=== PATIENT | female | born 1950 | race Caucasian/White ===

== ENCOUNTER 2019-07-11 12:23 | Outpatient (CLI) | payer MEDICARE, SELFPAY ==
--- NOTE | ~2019-07-11 | CT_ITS ---
EXAMINATION: CT chest wo con DATE: 07/11/2019 12:52 INDICATION: Pulmonary nodules TECHNIQUE: Computed tomography (CT) of the chest was performed without intravenous contrast. The dose -length product (DLP) was 163.47 mGy-cm. 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 COMPARISON: 11/08/2018 FINDINGS: The previously described pulmonary nodules persist but have decreased in size. For instance a 6 mm nodule of the right upper lobe measures 5 mm and is less dense than on the comparison examina tion. No new pulmonary nodules are identified. There is no pleural effusion or pneumothorax. The lung s are free of focal airspace opacities. No pathologically enlarged thoracic lymph nodes are identifie d. The heart size is normal. There is calcified atherosclerosis. There is subendocardial fat depositi on in the left ventricular apex. There is mild thoracic spondylosis. IMPRESSION: 1. Right lung nodules with slight decrease in size, most consistent with infection/inflammation. 2. Findings consistent with prior myocardial infarction. Reviewed, dictated and finalized at location A. IMPRESSION: 1. Right lung nodules with slight decrease in size, most consistent with infect ion/inflammation. 2. Findings consistent with prior myocardial infarction.
== END 2019-07-11 12:24 | disposition home or self-care (01) ==
PROVIDERS: PCP Family Medicine; Visit Provider Family Medicine
DX: R91.8 Other nonspecific abnormal finding of lung field (principal)
CPT/HCPCS: 71250

== ENCOUNTER 2020-01-13 00:37 | Outpatient (CLI) | payer MEDICARE, SELFPAY ==
[2020-01-13 20:45] LABS: SARS-CoV-2 RNA PCR Negative
== END 2020-01-13 00:38 | disposition home or self-care (01) ==
LOC: ANHCOVIDDT 00:37
PROVIDERS: PCP Family Medicine; Visit Provider Internal Medicine Gastroenterology
DX: Z01.818 Encounter for other preprocedural examination (principal); Z20.828 Contact with and (suspected) exposure to other viral communicable diseases
CPT/HCPCS: 87635; C9803; U0003

== ENCOUNTER 2020-01-16 01:52 | Day surgery (SDC) | payer MEDICARE, SELFPAY ==
[2020-01-08 12:16] VITALS: BMI 33.7
[2020-01-16 07:37] VITALS: BP 106/80; PULSE 65; RESP 20; TEMP 36.3; O2SAT 99
[2020-01-16] MEDS: LACTATED RINGERS 1,000 ML 150 ML IV CONT (07:54)
--- NOTE | 2020-01-16 07:56 | WPDGICN ---
Assessment and Plan Assessment and plan (1) History of colon cancer: Code(s): Z85.038 - Personal history of other malignant neoplasm of large intestine Status: Acute Assessment and Plan: Patient has a history of colon cancer in the year 1999 status post right hemicolectomy. Plan is for surveillance colonoscopy now at end at 3-5 year intervals in the future. GI Consult Note Consult date/time: 01/16/20 07:56 HPI: Kathleen Cruz is a 69 year old female Presents today for surveillance colonoscopy. Patient has a history of colon cancer resected in the year 1999. Her current weight appetite bowel movements are normal. She denies abdominal pain. She has had no bleeding. Additionally she has had colon polyps in the past. Previous surgery required a right hemicolectomy. As stated current weight appetite bowel movements normal. Family history is felt noncontributory. Review of Systems Review of Systems: All systems reviewed & are unremarkable except as noted in HPI and below PMFSH Social History Social History Living arrangements: alone Gender identity (if verbalized by the patient): Female Spiritual care concerns: No Meds Home Medications and Allergies Home Medications Medication Instructions Recorded Confirmed Type chlorthalidone 25 mg PO DAILY 01/08/20 01/16/20 History dapagliflozin [Farxiga] 10 mg PO DAILY 01/08/20 01/16/20 History escitalopram oxalate 20 mg PO HS 01/08/20 01/16/20 History insulin detemir U-100 [Levemir 56 unit SUBCUT DAILY 01/08/20 01/16/20 History FlexTouch U-100 Insuln] losartan 100 mg PO DAILY 01/08/20 01/16/20 History metformin 1,000 mg PO DAILY 01/08/20 01/16/20 History pravastatin 40 mg PO DAILY 01/08/20 01/16/20 History trazodone 50 mg PO HS 01/08/20 01/16/20 History Allergies Allergy/AdvReac Type Severity Reaction Status Date / Time honey Allergy Mild Other Verified 01/16/20 07:36 Vital Signs Vital Signs - 24 hr 01/16/20 07:37 Temperature 97.3 F L Pulse Rate 65 Respiratory Rate 20 Blood Pressure 106/80 Pulse Oximetry 99 Exam Narrative: Exam Narrative: Physical exam reveals patient be alert. Vital signs stable. HEENT exam is unremarkable. Lungs are clear to auscultation and percussion. Heart is without murmur or extra sounds. Abdominal exam bowel sounds are present soft nontender with no organomegaly. Digital external rectal exam is normal.
[2020-01-16 08:00] LABS: Glucose Point of Care 229 (65-105)
--- NOTE | 2020-01-16 08:08 | P.PNAN_ITS ---
Anes - Initial Pre Proc Eval Procedure: Operation Date: 01/16/20 09:00 Proposed Procedures p Screening Colonoscopy - De Fulton MD Date/Time: 01/16/20 08:08 Surgeon: De Fulton MD Pre Op Diagnosis: hx of colon polyps Patient Data Age: 69 Gender: F Height: 5 ft 6 in Weight: 93.8 kg Last Vital Signs Temp 97.3 F L 01/16/20 07:37 Pulse 65 01/16/20 07:37 Resp 20 01/16/20 07:37 BP 106/80 01/16/20 07:37 Pulse Ox 99 01/16/20 07:37 Allergies Allergy/AdvReac Type Severity Reaction Status Date / Time honey Allergy Mild Other Verified 01/16/20 07:36 Home Medications Medication Instructions Recorded Confirmed Type chlorthalidone 25 mg PO DAILY 01/08/20 01/16/20 History dapagliflozin [Farxiga] 10 mg PO DAILY 01/08/20 01/16/20 History escitalopram oxalate 20 mg PO HS 01/08/20 01/16/20 History insulin detemir U-100 [Levemir 56 unit SUBCUT DAILY 01/08/20 01/16/20 History FlexTouch U-100 Insuln] losartan 100 mg PO DAILY 01/08/20 01/16/20 History metformin 1,000 mg PO DAILY 01/08/20 01/16/20 History pravastatin 40 mg PO DAILY 01/08/20 01/16/20 History trazodone 50 mg PO HS 01/08/20 01/16/20 History Laboratory Tests 01/16/20 07:54 POC Capillary Glucose 229 mg/dl H mg/dl (65-105) Patient hx anesthesia problems: none Family hx anesthesia problems: none [facility] Past Medical History Medical History (Updated 01/16/20 @ 08:08 by Kevin Yi MD) Arthritis Diabetes H/O colon cancer, stage I Hyperlipidemia Hypertension Social History Social History Living arrangements: alone Gender identity (if verbalized by the patient): Female Spiritual care concerns: No Anes - Eval Final PreProcedure Day of Procedure 01/16/20 08:08 Patient weight: obese Heart: regular rate and rhythm Lungs: clear to auscultation Airway: Mallampati scale class II Neurological: alert and oriented Last oral intake: >/= 8 hours ASA classification: III Emergent: no Anesthetic plan: proceed Anesthesia type and monitoring: general GIVS and standard monitoring Informed Consent: The patient's anesthetic plan and its attendant risks and benefits were discussed with the patient/family/POA. Questions were solicited and answers provided to the satisfaction of the patient/family/POA.
[2020-01-16] MEDS: SIMETHICONE ORAL SUSPENSION 20 MG/0.3 ML 30 ML BOTTLE 0.6 ML IRRIGATION (09:03)
[2020-01-16 09:11] VITALS: BP 118/62; PULSE 72; RESP 16; O2SAT 94
[2020-01-16 09:21] VITALS: BP 127/73; PULSE 61; RESP 13; O2SAT 98
[2020-01-16 09:31] VITALS: BP 143/66; PULSE 63; RESP 17; O2SAT 97
== END 2020-01-16 09:45 | disposition home or self-care (01) ==
PROVIDERS: PCP Family Medicine; Visit Provider Internal Medicine Gastroenterology
PROC: 0DJD8ZZ Inspection of Lower Intestinal Tract, Via Natural or Artificial Opening Endoscopic (ICD-10-PCS; CPT 45378; principal; 2020-01-16 09:00)
DX: Z12.11 Encounter for screening for malignant neoplasm of colon (principal); K57.30 Diverticulosis of large intestine without perforation or abscess without bleeding; K64.8 Other hemorrhoids; Z85.038 Personal history of other malignant neoplasm of large intestine; Z90.49 Acquired absence of other specified parts of digestive tract; Z98.0 Intestinal bypass and anastomosis status; I10 Essential (primary) hypertension; E78.5 Hyperlipidemia, unspecified; E11.9 Type 2 diabetes mellitus without complications; Z79.84 Long term (current) use of oral hypoglycemic drugs; Z79.4 Long term (current) use of insulin; E66.9 Obesity, unspecified; Z68.33 Body mass index [BMI] 33.0-33.9, adult
CPT/HCPCS: G0105; C9803; J2704; J7120; U0003

== ENCOUNTER 2020-06-10 13:13 | Outpatient (CLI) | payer MEDICARE, SELFPAY ==
--- NOTE | ~2020-06-10 | MM_ITS ---
EXAMINATION: MM screening [facility] HISTORY: Screening mammogram TECHNIQUE: Craniocaudal and mediolateral oblique 3-D tomosynthesis images were obtained and synthetic 2-D images were generated. CAD analysis was submitted and interpreted. COMPARISON: 07/2018, 03/02/2016, 02/11/2014 bilateral digital screening mammogram examinations BREAST PARENCHYMAL COMPOSITION: The breasts are almost entirely fatty. FINDINGS: There is no evidence of suspicious mass, calcification, or architectural distortion to sugg est malignancy in either breast. There has been no suspicious interval change. IMPRESSION: 1. No mammographic evidence of malignancy. 2. Recommend routine screening mammography in one year. BI-RADS Category 1: Negative Reviewed, dictated and finalized at location A.
== END 2020-06-10 13:14 | disposition home or self-care (01) ==
LOC: ANHIMG 13:14
PROVIDERS: PCP Family Medicine; Visit Provider Family Medicine
DX: Z12.31 Encounter for screening mammogram for malignant neoplasm of breast (principal)
CPT/HCPCS: 77063; 77067

== ENCOUNTER → 2020-10-13 02:23 | Outpatient (CLI) | payer MEDICARE, SELFPAY ==
[2020-10-13 19:54] LABS: SARS-CoV-2 RNA PCR Negative
== END ==
PROVIDERS: PCP Family Medicine; Visit Provider Family Medicine
DX: R68.89 Other general symptoms and signs (principal); Z20.822 Contact with and (suspected) exposure to COVID-19
CPT/HCPCS: C9803; U0003; U0005

== ENCOUNTER 2021-06-29 14:45 | Outpatient (CLI) | payer MEDICARE, SELFPAY ==
--- NOTE | ~2021-06-29 | MM_ITS ---
EXAMINATION: MM screening [facility] w [facility]enzie HISTORY: Screening mammogram TECHNIQUE: Craniocaudal and mediolateral oblique 3-D tomosynthesis images were obtained and synthetic 2-D images were generated. CAD analysis was submitted and interpreted. COMPARISON: 06/10/2020, 07/19/2018, 03/02/2016 BREAST PARENCHYMAL COMPOSITION: The breasts are heterogeneously dense, which may obscure small masses . FINDINGS: There is no suspicious mass, calcification, or architectural distortion to suggest malignan cy in either breast. There has been no suspicious interval change. IMPRESSION: 1. No mammographic evidence of malignancy. 2. Recommend routine screening mammography in one year. BI-RADS Category 1: Negative Reviewed, dictated and finalized at location A.
== END 2021-06-29 14:46 | disposition home or self-care (01) ==
PROVIDERS: PCP Family Medicine; Visit Provider Family Medicine
DX: Z12.31 Encounter for screening mammogram for malignant neoplasm of breast (principal)
CPT/HCPCS: 77063; 77067

== ENCOUNTER 2022-11-17 09:38 | Outpatient (CLI) | payer MEDICARE, SELFPAY ==
--- NOTE | ~2022-11-17 | MM_ITS ---
EXAMINATION: MM screening [facility] HISTORY: Screening mammogram TECHNIQUE: Craniocaudal and mediolateral oblique 3-D tomosynthesis images were obtained and synthetic 2-D images were generated. CAD analysis was submitted and interpreted. COMPARISON: 06/29/2021, 06/10/2020, 07/19/2018 BREAST PARENCHYMAL COMPOSITION: There are scattered areas of fibroglandular density. FINDINGS: No suspicious mass, calcification, or architectural distortion are identified in either rosa ast to suggest malignancy. There has been no suspicious interval change. IMPRESSION: 1. No mammographic evidence of malignancy. 2. Recommend routine screening mammography in one year. BI-RADS Category 1: Negative Reviewed, dictated and finalized at location A.
== END 2022-11-17 09:39 | disposition home or self-care (01) ==
PROVIDERS: PCP Family Medicine; Visit Provider Family Medicine
DX: Z12.31 Encounter for screening mammogram for malignant neoplasm of breast (principal)
CPT/HCPCS: 77063; 77067

== ENCOUNTER 2023-10-04 16:38 | Emergency (ER) | payer MEDICARE, SELFPAY ==
--- NOTE | ~2023-10-04 | CT_ITS ---
EXAMINATION: CTA BRAIN/CAROTID DATE: 10/04/2023 22:18 INDICATION: Severe headache extending into the neck. TECHNIQUE: Computed tomographic angiography (CTA) of the head and neck was performed with 100 mL Omni paque-350 intravenous contrast. Multiplanar reconstructions and maximum intensity projection 3D-recon structions of the carotid arteries and of the intracranial arteries were created by the technologist on a separate workstation. Automated exposure control and iterative reconstruction technique were emp loyed.The dose-length product was 960.09 mGy-cm. COMPARISON: None. FINDINGS: Carotid arteries: Visualized portion of the aortic arch is unremarkable. There is atherosclerotic plaque with 50% steno sis at the origin of the left subclavian artery. Bilateral vertebral arteries are codominant with no evident stenosis. There is atherosclerotic plaque with 0% stenosis of the right and left carotid bulb s relative to normal distal artery lumen diameter (NASCET criteria). Mild dependent atelectasis in th e visualized upper lungs. Cervical soft tissues are unremarkable. Severe spondylosis at C6-C7 and ant erior spinal fusion at C5-C6. Intracranial arteries Bilateral vertebral arteries are codominant. There is atherosclerotic plaque without hemodynamically significant stenosis at the bilateral carotid siphons and at the intracranial left vertebral artery. There is no hemodynamically significant stenosis in the vertebral, basilar and internal carotid arter ies. There are no aneurysms identified. Both A1 and P1 segments are patent. Cerebral arterial arbor ization appears symmetric. No abnormally enhancing brain lesions. IMPRESSION: 1. 0% stenosis of the right and left carotid bulbs relative to normal distal artery lumen diameter (N ASCET criteria). 2. Unremarkable cerebral CT angiogram with no hemodialysis of stenosis, aneurysm or thrombosis. Reviewed, dictated and finalized at location A. IMPRESSION: 1. 0% stenosis of the right and left carotid bulbs relative to normal distal ar marichuy lumen diameter (NASCET criteria). 2. Unremarkable cerebral CT angiogram with no hemodialysis of stenosis, aneurys m or thrombosis.
--- NOTE | ~2023-10-04 | CT_ITS ---
EXAMINATION: CT brain wo con DATE: 10/04/2023 17:33 INDICATION: Headache TECHNIQUE: Computed tomography (CT) of the head was performed without intravenous contrast. Sagittal and coronal reconstructions were performed. The mA was adjusted according to patient size. Iterative reconstruction technique was employed. The dose-length product was 605.33 mGy-cm. COMPARISON: None FINDINGS: No acute intracranial hemorrhage, acute infarction or abnormal extra axial fluid collection. There is mild scattered white matter hypoattenuation consistent with chronic small vessel ischemic disease. V entricles are normal and symmetric. No mass/mass effect. Changes of bilateral intraocular lens replac ement. The orbits and mastoid air cells are normal. Partial opacification of the left sphenoid sinus. IMPRESSION: 1. Mild scattered white matter hypoattenuation consistent with chronic small vessel disease. No acute intracranial process. 2. Partial opacification of the left sphenoid sinus. Correlate clinically for acute sinusitis. Reviewed, dictated and finalized at location A. IMPRESSION: 1. Mild scattered white matter hypoattenuation consistent with chronic small ve ssel disease. No acute intracranial process. 2. Partial opacification of the left sphenoid sinus. Correlate clinically for a cute sinusitis.
--- NOTE | ~2023-10-04 | XR_ITS ---
EXAMINATION: XR chest 2V DATE: 10/04/2023 17:40 INDICATION: History of fungal infection TECHNIQUE: PA and lateral views of the chest were obtained. COMPARISON: Chest CT dated 07/11/2019 FINDINGS: Suture line associated with a partial pneumonectomy in the right lower lobe. No airspace opacities, p ulmonary edema, pleural effusion or pneumothorax. The cardiomediastinal silhouette is normal. Mild th oracic spondylosis. Cholecystectomy clips in right upper quadrant. IMPRESSION: 1. Changes of prior right lower lobe pulmonary wedge resection. No acute cardiopulmonary disease. Reviewed, dictated and finalized at location A. IMPRESSION: 1. Changes of prior right lower lobe pulmonary wedge resection. No acute cardio pulmonary disease.
[2023-10-04 16:49] VITALS: BP 123/53; PULSE 83; RESP 18; TEMP 36.7; O2SAT 95
--- NOTE | 2023-10-04 17:14 | ED.NECK ---
HPI - Neck Pain/Injury General Chief Complaint: Neck Pain/Injury <Tamica Inman APRN - Last Filed: 10/04/23 17:25> Stated Complaint: headache <Tamica Inman APRN - Last Filed: 10/04/23 17:25> Time Seen by Provider: 10/04/23 17:14 <Tamica Inman APRN - Last Filed: 10/04/23 17:25> Focused HPI: Pt is a 73-year-old female who presents to the ER with a headache, neck pain, and shoulder pain. She reports she woke up on Monday morning with the pain. Pt thought she had slept wrong but the pain has continued. She took Aleve and an Oxycodone yesterday, which temporarily relieved the pain, but it has since returned. Pt reports she is unable to move her head side to side. She denies any recent fevers or illnesses. Pt's son denies any recent altered mental status. She reports this is the worst headache I've ever had. GENERAL: Well-appearing, well-nourished, and in no acute distress. HEAD: Normocephalic, atraumatic. CHEST: Clear to auscultation. ?No respiratory distress. HEART: Regular rate and rhythm.? NEURO: ?Alert and oriented x3. Patient screened in triage and initial orders placed.? ?Additional care and disposition to be based upon?diagnostic testing and treatment. <Tamica Inman APRN - Last Filed: 10/04/23 17:25> Source: patient and family <Tamica Inman APRN - Last Filed: 10/04/23 17:25> Mode of arrival: ambulatory <Tamica Inman APRN - Last Filed: 10/04/23 17:25> Limitations: no limitations <Tamica Inmna APRN - Last Filed: 10/04/23 17:25> History of Present Illness HPI Narrative: Patient is a 73-year-old female presenting with headache and neck pain. States that she has had a headache as well as bilateral neck pain for the last several days. States that she took an Aleve which helped a little. She ended up taking a left over oxycodone which dramatically improved the pain and she was able to sleep. Unfortunately, the pain returned. States that it is worsened with certain movements and pushing on her lower neck muscles hurts a lot. She denies numbness or weakness, vision or speech changes, fevers or chills. Denies any traumatic injuries recently. <Rocio Peña MD - Last Filed: 10/05/23 20:55> Related Data Home Medications: Home Medications Medication Instructions Recorded Confirmed metformin 1,000 mg tablet 1,000 mg PO DAILY 01/08/20 05/16/23 pravastatin 40 mg tablet 40 mg PO DAILY 01/08/20 05/16/23 <Tamica Inman APRN - Last Filed: 10/04/23 17:25> Allergies/Adverse Reactions: Allergies Allergy/AdvReac Type Severity Reaction Status Date / Time honey Allergy Mild Other Verified 10/04/23 19:47 <Tamica Inman APRN - Last Filed: 10/04/23 17:25> Review of Systems Review of Systems: All systems reviewed & are unremarkable except as noted in HPI and below <Rocio Peña MD - Last Filed: 10/05/23 20:55> PMFSH Past Medical History Medical History: Medical History Arthritis Atherosclerosis of aorta Diabetes Dyspepsia H/O colon cancer, stage I Hyperlipidemia Hypertension Major depressive disorder, recurrent, unspecified Rosacea, unspecified Urge incontinence <Tamica Inman APRN - Last Filed: 10/04/23 17:25> Social History Social History: Social History Smoking status: Never smoker Second hand tobacco smoke exposure: No Alcohol intake: never Substance use: never Substance use type: does not use Do You Feel Safe in your Home?: Yes Lack of Transportation: No Lack of Food: Never True Current Housing: I Have Housing Concerned About Future Housing: No Difficulty Paying Gas/Electric Bills: No Difficulty Paying for Meds: No Currently Unemployed: YES Education: Trade/Vocational Certificate Difficulty w/ Childcare or Family Care: No
[2023-10-04 19:48] LABS: Basophils Percent Auto 0.3 % (0.2-1.2); Eosinophils Absolute Auto 0.2 K/mm3 (0-0.3); Eosinophils Percent Auto 1.4 % (0-4.4); Hematocrit 43.8 % (37.0-47.0); Hemoglobin 14.3 g/dL (12.0-15.0); Immature Granulocyte Absolute 0.03 K/mm3 (0.00-0.031); Immature Granulocyte Percent A 0.3 % (0-0.5); Lymphocytes Absolute Auto 2.92 K/mm3 (0.9-3.2); Lymphocytes Percent Auto 27.7 % (18.3-44.2); Mean Corpuscular HGB Conc 32.6 g/dl (32-36); Mean Corpuscular Hemoglobin 29.6 pg (26-34); Mean Corpuscular Volume 90.7 fl (80-100); Monocytes Absolute Auto 0.9 K/mm3 (0.1-0.6); Monocytes Percent Auto 8.5 % (2.6-8.5); Neutrophils Absolute Auto 6.5 K/mm3 (1.3-6.7); Neutrophils Percent Auto 61.8 % (45.5-73.1); Platelet Count Result 373 k/mm3 (150-375); Red Blood Count 4.83 M/mm3 (4.2-5.4); Red Cell Distribution Width 13.2 % (11.5-14.5); White Blood Count 10.5 K/mm3 (4.5-10.0)
[2023-10-04 20:01] LABS: Alanine Aminotransferase 27 U/L (6-35); Albumin Level 3.7 g/dL (3.5-5.1); Alkaline Phosphatase 102 U/L (38-126); Anion Gap 9 mmol/L (4-12); Aspartate Amino Transferase 26 U/L (14-36); Bilirubin,Total 0.6 mg/dL (0.2-1.3); Blood Urea Nitrogen 14 mg/dL (7-17); Calcium 8.8 mg/dL (8.4-10.2); Carbon Dioxide 28 mmol/L (22-30); Chloride 102 mmol/L (98-107); Estimated CRCL calculation 78 ml/min; Estimated Glomerular Filt Rate > 60; Glucose 115 mg/dL (65-110); Lactic Acid Reflex 1.6 mmol/L (0.7-2.0); Potassium 3.8 mmol/L (3.4-5.0); Sodium 139 mmol/L (137-145)
[2023-10-04] MEDS: diazePAM INJ (*CRX) 10 MG/2 ML SYRINGE IV PUSH (20:20)
[2023-10-04] MEDS: SODIUM CHLORIDE 0.9% IV 1,000 ML 999 ML IV CONT ×2 (20:20→21:29)
[2023-10-04] MEDS: KETOROLAC 15 MG/ML VIAL (*BKC) IV PUSH (20:20)
[2023-10-04 20:53] VITALS: BP 139/59; PULSE 66; RESP 18; O2SAT 98
[2023-10-04] MEDS: diphenhydrAMINE HCl INJ 50 MG/ML VIAL 25 MG IV PUSH (21:29)
[2023-10-04] MEDS: PROCHLORPERAZINE EDISYLATE 10 MG/2 ML VIAL IV PUSH (21:29)
[2023-10-04] MEDS: CYCLOBENZAPRINE HCL 10 MG TABLET PO (22:57)
== END 2023-10-04 23:34 | disposition home or self-care (01) ==
PROVIDERS: Registered Nurse; Emergency Provider Emergency Medicine; PCP Family Medicine
DX: R51.9 Headache, unspecified (principal); M54.2 Cervicalgia; M25.519 Pain in unspecified shoulder; I70.0 Atherosclerosis of aorta; I10 Essential (primary) hypertension; E11.9 Type 2 diabetes mellitus without complications; E78.5 Hyperlipidemia, unspecified; N39.41 Urge incontinence; M19.90 Unspecified osteoarthritis, unspecified site; Z85.038 Personal history of other malignant neoplasm of large intestine; Z79.84 Long term (current) use of oral hypoglycemic drugs; Z79.85 Long-term (current) use of injectable non-insulin antidiabetic drugs; Z79.899 Other long term (current) drug therapy
CPT/HCPCS: 36415; 70450; 70496; 70498; 71046; 80053; 83605; 85025; 96361; 96374; 96375; 99284; A9270; J0780; J1200; J1885; J3360; J7030; Q9967

== ENCOUNTER 2023-11-22 15:12 | Outpatient (CLI) | payer MEDICARE, SELFPAY ==
--- NOTE | ~2023-11-22 | MM_ITS ---
EXAMINATION: MM screening [facility] HISTORY: Screening TECHNIQUE: Craniocaudal and mediolateral oblique 3-D tomosynthesis images were obtained and synthetic 2-D images were generated. CAD analysis was submitted and interpreted. COMPARISON: Comparison to multiple prior studies sequentially, with oldest reviewed study dated 01/15. BREAST PARENCHYMAL COMPOSITION: Not dense: There are scattered areas of fibroglandular density. FINDINGS: There is no evidence of suspicious mass, calcification, or architectural distortion to sugg est malignancy in either breast. There has been no suspicious interval change. IMPRESSION: 1. No mammographic evidence of malignancy. 2. Recommend routine screening mammography in one year. BI-RADS Category 1: Negative Reviewed, dictated and finalized at location B.
== END 2023-11-22 15:13 | disposition home or self-care (01) ==
LOC: ANHIMG 15:13
PROVIDERS: PCP Family Medicine; Visit Provider Family Medicine
DX: Z12.31 Encounter for screening mammogram for malignant neoplasm of breast (principal)
CPT/HCPCS: 77063; 77067

== ENCOUNTER 2024-12-26 09:09 | Outpatient (CLI) | payer MEDICARE, SELFPAY ==
--- NOTE | ~2024-12-26 | MM_ITS ---
EXAMINATION: MM screening jennifer BI w mackenzie HISTORY: Screening TECHNIQUE: Craniocaudal and mediolateral oblique 3-D tomosynthesis images were obtained and synthetic 2-D images were generated. CAD analysis was submitted and interpreted. COMPARISON: No prior mammogram is available for comparison at this institution. BREAST PARENCHYMAL COMPOSITION: FINDINGS: There is no evidence of suspicious mass, calcification, or architectural distortion to suggest malignancy in either breast. There has been no suspicious interval change. IMPRESSION: 1. No mammographic evidence of malignancy. 2. Recommend routine screening mammography in one year. BI-RADS Category 1: Negative Reviewed, dictated and finalized at location [facility]
--- OUTSIDE RECORDS SUMMARY | 2024-12-26 09:36 | XMS_ITS | Clinical Summary ---
Author Organization [facility] [place] Address [address] [place] [address] Care Team Providers Care Egg Candler Name Role Phone Umair Gary MD Primary Care Provider [phone] Allergies No known active allergies Medications traZODone (DESYREL) 50 mg tablet Take 50 mg by mouth nightly 1 9 Active pravastatin (PRAVACHOL) 40 mg tablet Take 40 mg by mouth nightly 1 9 Active metFORMIN (GLUCOPHAGE) 1,000 mg tablet Take 1,000 mg by mouth 2 (two) times a day 1 9 Active losartan (COZAAR) 100 mg tablet Take 100 mg by mouth daily 1 9 Active escitalopram (LEXAPRO) 20 mg tablet Take 20 mg by mouth nightly 1 9 Active FARXIGA 10 mg tabletIndicatio ns:type 2 diabetes mellitus Take 10 mg by mouth daily 1 9 Active chlorthalidone 25 mg tablet Take 25 mg by mouth every morning 1 9 Active OneTouch Verio strip USE TO TEST ONCE A DAY 0 Active BD Ultra-Fine Short Pen Needle 31 gauge x 5/16 needle 0 Active LEVEMIR 100 unit/mL (3 mL) pen for injection Inject 70 Units under the skin nightly 1 Active docusate sodium (DOK) 100 mg tabletIndicatio ns:constipation Take 100 mg by mouth nightly Active ucugnqtc-gie-gg kk-DF-zynhwp 8 mg iron-400 mcg-300 mcg tablet Take 1 tablet by mouth daily Womens 50+ Active vitamin B complex capsule Take 1 capsule by mouth daily Active biotin 10,000 mcg capsule Take 1 capsule by mouth daily Active oxybutynin (DITROPAN) 5 mg tablet Take 5 mg by mouth 2 (two) times a day Active minocycline (MINOCIN,DYNACI N) 50 mg capsule Take 50 mg by mouth 2 (two) times a day 2 Active prednisoLONE acetate (PRED FORTE) 1 % ophthalmic suspension PLEASE SEE ATTACHED FOR DETAILED DIRECTIONS 3 Active Active Problems Problem Noted Date Diagnosed Date Status post total right knee replacement 022 Type 2 diabetes mellitus wit hout complication, with long-term current use of insulin 08/05/2021 Primary hypertension 08/05/2021 Mixed hyperlipidemia 08/05/2021 Obesity, Class I, BMI 30-34.9 08/05/2021 History of DVT (deep vein thrombosis) 08/05/2021 Primary osteoarthritis of right knee 07/15/2021 Overview (07/15/2021): Added automatically from request for surgery [id number] Surgical History Surgery Date Site/Laterality Comments HYSTERECTOMY KNEE SURGERY 02/13/1989 - 02/12/1990 Left torn cartilage JOINT REPLACEMENT 02/13/2009 - 02/12/2010 Left SECTION CARDIAC CATHETERIZATION 02/14/2000 - 02/12/2001 no intervention COLONOSCOPY CHOLECYSTECTOMY HERNIA REPAIR umbilical with mesh CATARACT EXTRACTION EXTRACAPSULAR W/ INTRAOCULAR LENS IMPLANTATION Bilateral JOINT REPLACEMENT 08/05/2021 Right total knee Medical History Medical History Date Comments Osteoarthritis Diabetes mellitus Depression GERD (gastroesophageal reflux disease) Type 2 diabetes mellitus PONV (postoperative nausea and vomiting) Hypertension Hyperlipidemia Deep vein thrombosis (DVT) of lower extremity (H CC) 2010 post op after LTKR Pulmonary embolism 2010 post op after LTKR Urinary frequency Arthritis Social History Tobacco Use Types Packs/Day Years Used Date Smoking Tobacco: Never Alcohol Use Standard Drinks/Week Comments Not Currently 0 (1 standard drink = 0.6 oz pur e alcohol) Social Connection and Isolation Panel Answer Date Recorded In a typical week, how many times do you talk on the phone with family, friends, or neighbors? More than three times a week 08/06/2021 How often do you get togethe r with friends or relatives? More than three times a week 08/06/2021 How often do you attend chur ch or yazdanism services? Never 08/06/2021 Do you belong to any clubs o r organizations such as scientologist groups, unions, fraternal or athletic groups, or school groups? No 08/06/2021 How often do you attend meet ings of the clubs or organizations you belong to? Never 08/06/2021 Are you , , di vorced, , never , or living with a partner? 08/06/2021 AUDIT-C Answer Date Recorded Q1: How often do you have a drink containing alc ohol? Monthly or less 08/05/2021 Q2: How many drinks containi ng alcohol do you have on a typical day when you are drinking? 1 or 2 08/05/2021 Q3: How often do you have si x or more drinks on one occasion? Never 08/05/2021 Overall Financial Resource Strain (CARDIA) Answe r Date Recorded How hard is it for you to pa y for the very basics like food, housing, medical care, and heating? Not hard at all 08/06/2021 PRAPARE - Transportation Answer Date Re corded In the past 12 months, has l ack of transportation kept you from medical appointments or from getting medications? No 07/15 In the past 12 months, has l ack of transportation kept you from meetings, work, or from getting things needed for daily living? 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 Gender Identity Not on file Sexual Orientation Not on file Occupation Industry Job Start Date Job End Date retired Not on file Not on file Not on file Last Filed Vital Signs Vital Sign Reading Time Taken Comments Blood Pressure 110/62 09/02/2021 12:00 AM CDT Pulse 76 09/02/2021 12:00 AM CDT Temperature 36.4 C (97.5 F) 09/02/2021 12:00 AM CDT Respiratory Rate 18 09/02/2021 12:00 AM CDT Oxygen Saturation 98% 09/02/2021 12:00 AM CDT Inhaled Oxygen Concentration - - Weight 104.3 kg (230 lb) 06/24/2022 9:45 AM CDT Height 172.7 cm (5' 8) 06/24/2022 9:45 AM CDT Body Mass Index 34.97 06/24/2022 9:45 AM CDT Plan of Treatment Health Maintenance Due Date Last Done Comments Albumin Creatinine Ratio, Urine 1950 Breast Cancer Screening-Mammogram 1950 Colon Cancer Screening-Colonoscopy 1950 Depression Screening 1950 Hepatitis C Screening 1950 Osteoporosis Screening-Bone Density Scan 1950 Dilated Eye Exam 1950 Foot Exam 1950 Lipid Panel 1950 Hepatitis B Screening 1968 Zoster Vaccine (1 of 2) 2000 Well Visit 65+ 09/12/2015 Hemoglobin A1C 01/20/2022 07/21/2021, 05/21/2015 eGFR 08/06/2022 08/06/2021, 07/21/2021 Fall Risk Assessment 08/07/2022 08/07/2021 DTaP/Tdap/Td Vaccine (2 - Td or Tdap) 09/30/2024 09/30/2014 Covid-19 Vaccine (3 - 2024-2 6 season) 2024 12/15/2020, 11/10/2020 Influenza Vaccine (#1) 2024 , 11/15/2019, 10/26/2018, Additional history exists Pneumococcal vaccine 65+ Completed 10/26/2018, 08/2015 Medical Devices Implanted Type Area Pipelines Manager Device Identifier Shelf Expiration Date Model / Serial / Lot Mesh Umbilical [employer] Simplex P Radiopaque Full Dose Cement Bone Sterile 6191-1-010 - [id number] Implanted:Qty: 1 on 08/05/2021 by Abdirahman Yañez MD at [facility] 07/14/2023 6191-1-010 / / [id number] [employer] Legion Cemented Posterior Stabilize Knee Right 5 Narrow Component [id number] - [id number] Implanted:Qty: 1 on 08/05/2021 by Abdirahman Yañez MD at [facility] [employer] [id number] 05/30/2031 [id number] / / [id number] [employer] Lupe Ii 13mm 29mm Biconvex Knee Component Patellar Uhmwpe [id number] - [id number] Implanted:Qty: 1 on 08/05/2021 by Abdirahman Yañez MD at [facility] [employer] [id number] 10/31/2030 [id number] / / [id number] [employer] Legion Cemented Male Taper Knee Right 4 Baseplate Tibial Titanium [id number] - [id number] Implanted:Qty: 1 on 08/05/2021 by Abdirahman Yañez MD at [facility] [employer] [id number] 04/29/2031 [id number] / / [id number] [employer] Legion 10mm Posterior Stabilize High Flexion Knee 3-4 Insert [id number] - [id number] Implanted:Qty: 1 on 08/05/2021 by Abdirahman Yañez MD at [facility] [employer] [id number] 10/20/2028 [id number] / / [id number] Procedures Procedure Name Priority Date/Time Associated Diagnosis Comments EGFR Routine 08/06/2021 5:07 AM CDT HEMOGLOBIN A1C Routine 07/21/2021 1:28 PM CDT Primary osteoarthritis of right knee Preop testing Elevated hemoglobin A1c from Last 3 Months or Most Recently Relevant to Health Maintenance Results * eGFR (08/06/2021 5:07 AM CDT) Pathologist [facility] eGFR 101 mL/min/1. 73 m2 DANIEL Comment: Interpretive Data Reference Interval Normal >/= 90 mL/min/1.73m2 Mildly decreased* 60 - 89 mL/min/1.73m2 Mildly to moderately decreased 45 - 59 mL/min/1.73m2 Moderately to severely decreased 30 - 44 mL/min/1.73m2 Severely decreased 15 - 29 mL/min/1.73m2 Kidney Failure < 15 mL/min/1.73m2 *Relative to young adult level Estimated glomerular filtration rate is determined by the 2020 CKD-EPI equation recommended by the National Kidney Foundation (A Unifying Approach to GFR Estimation: Recommendations of the NKF-ASK Task Force on Reassessing the Inclusion of Race in Diagnosing Kidney Disease, JASN 2020). The CKD-EPI equation should not be used for patients with unstable renal function and has not been validated in children and those over 70. Current interpretive data was last reviewed 2020. Blood 08/06/2021 5:07 AM CDT 08/06/2021 5:15 AM CDT Parminder MURRY LAB BLOOD ORDERABLES Kay l Result Performing Organization Address [facility] de Phone Number [address] Department [place] [address] * (ABNORMAL) Hemoglobin A1c (07/21/2021 1:28 PM CDT) Hgb A1C 7.7(H) 4.0 - 5.6 % [facility] Estimated Average Glucose 174 mg/dL [facility] Comment: The ADA recommends reporting an estimated Average Glucose (eAG) with all Hemoglobin A1c results using the equation derived from a study of 507 normal and diabetic adults. Minority populations were underrepresented and children were not included. (Diabetes Care 31:4110-9837, 2008). The eAG is not equivalent to a fasting glucose. Blood 07/21/2021 1:28 PM CDT 07/21/2021 1:33 PM CDT Narrative [facility] - 07/21/2021 1:49 PM CDT If patient is diabetic Abdirahman Yañez MD LAB BLOOD ORDERABLES Final R esult Performing Organization Address [facility] Co de Phone Number [address] Department [place] [address] from Last 3 Months or Most Recently Relevant to Health Maintenance Insurance AET MEDICARE GOLD AET MEDICARE GOLD AET MEDICARE GOLD Advance Directives For more information, please contact: [phone] * Full Code (Latest Code Status on File) Date Activated Date Inactivated Comments 08/05/2021 11:50 AM 08/07/2021 6:12 PM Care Teams Egg Candler Relationship Specialty Start Date End Date Umair Gary MD [address] [place] [address] [phone] PCP - General Family Medicine 04/23/19
== END 2024-12-26 09:10 | disposition home or self-care (01) ==
LOC: ANHFOHIMG 09:11
PROVIDERS: PCP Family Medicine; Visit Provider Family Medicine
DX: Z12.31 Encounter for screening mammogram for malignant neoplasm of breast (principal)
CPT/HCPCS: 77063; 77067